=== PATIENT | female | born 1985 | race Caucasian/White ===

== ENCOUNTER 2018-04-10 12:02 | Emergency (ER) | payer SELFPAY ==
[~2018-04-10] VITALS: Ht 157.5 cm; Wt 63.0 kg
[~2018-04-10 12:02] MED LIST: PREN1TAB49; [UNRECOGNIZED DRUG - CODE]
[2018-04-10 12:05] VITALS: Ht 157.5 cm; Wt 63.0 kg
[2018-04-10] MEDS ORDERED: KETOROLAC 60 MG INJ IM STA (15:17)
[2018-04-10] MEDS ORDERED: HYDROCODONE/APAP (5/325) TAB PO ONE (15:30)
[2018-04-10] MEDS ORDERED: SULF1TAB31 PO (15:43)
[2018-04-10] MEDS ORDERED: CEPH-443 PO (15:43)
[2018-04-10] MEDS ORDERED: IBUP-1542 PO (15:43)
--- NOTE | 2018-04-10 16:01 | ERD ---
ER Documentation Chief Complaint Chief Complaint ABCESS TO RT ARMPIT SINCE DECEMBER HPI 32-year-old female patient with no significant past medical history presents to ED complaining of a right arm bump that started since December and has gotten bigger. States that it started to get more red and painful, 2 days ago. Patient reports that she shaves her armpits. Denies any fever, chills, nausea, vomiting, chest pain, shortness of breath. ROS All systems reviewed and are negative except as per history of present illness. Medications Home Meds Active Scripts Cephalexin* (Keflex*) 500 Mg Capsule, 500 MG PO QID for 7 Days, CAP Prov:KENRICK WALSH PA-C 04/10/18 Sulfamethoxazole/Trimethoprim* (Bactrim Ds* Tablet) 1 Each Tablet, 1 TAB PO BID for 7 Days, #14 TAB Prov:KENRICK WALSH PA-C 04/10/18 Ibuprofen* (Motrin*) 600 Mg Tab, 600 MG PO Q6, #30 TAB Prov:KENRICK WALSH PA-C 04/10/18 Reported Medications Vits W-Ca,Fe,Fa(<1MG) () 1 Tab Tablet 07/07/10 Amox Tr/Potassium Clavulanate (Augmentin 500-125 Tablet) 1 Tab Tablet 07/02/10 Allergies Allergies: Coded Allergies: No Known Drug Allergy (Verified Allergy, Unknown, 07/07/10) PMhx/Soc History of Surgery: No Anesthesia Reaction: No Hx Neurological Disorder: No Hx Respiratory Disorders: No Hx Cardiac Disorders: No Hx Psychiatric Problems: No Hx Miscellaneous Medical Probl: No Hx Alcohol Use: No Hx Substance Use: No Hx Tobacco Use: Yes Smoking Status: Current every day smoker FmHx Family History: No diabetes, No coronary disease Physical Exam Vitals Vital Signs Date Temp Pulse Resp B/P (MAP) Pulse Ox O2 O2 Flow FiO2 Time Delivery Rate 04/10/18 98.3 67 17 125/62 99 12:05 (83) Physical Exam Const: [id number]-[id number], well-nourished. In no acute distress. Head: Atraumatic, normocephalic Eyes: Normal Conjunctiva without injection ENT: Normal external ear, nose and mouth. Neck: Full range of motion. No meningismus. Resp: Clear to auscultation bilaterally. No wheezing, rhonchi, rales, or crackles. No accessory muscle use. No retractions. Cardio: Regular rate and rhythm, no murmurs Skin: No petechiae or rashes Back: No midline tenderness. No CVA tenderness. Ext: No cyanosis, or edema. Cap refill less than 2 seconds. Distal pulses intact bilaterally. 3 cm x 2 cm cystlike lesion noted on the right armpit. Slight erythema noted. No edema, purulent discharge, fluctuance, induration, lymphatic streaking. Neur: Awake and alert. Normal gait and coordination. Muscle strength 5/5. Sensa tion intact bilaterally. Psych: Normal Mood and Affect Results 24 hrs Laboratory Tests Test 04/10/18 15:33 POC Beta HCG, Qualitative NEGATIVE Current Medications Medications Dose Sig/Nini Start Time Status Last (Trade) Ordered Route PRN Stop Time Admin Dose Reason Admin 1 tab ONCE ONCE 04/10/18 Cancel Acetaminophen PO 15:30 04/10/18 / 15:31 Hydrocodone Bitart ([place] (5/325)) Ketorolac 60 mg ONCE STAT 04/10/18 DC 04/10/18 Tromethamine IM 15:17 04/10/18 15:35 (Toradol) 15:18 Procedures/MDM 32-year-old female patient with no significant past medical history presents to the ED complaining of a cystlike lesion noted on her right armpit that started since December but worsen, 2 days ago. Patient is afebrile and nontoxic- appearing. At this time there is no fluctuance. There is no indication for incision and drainage. Urine negative. Patient was treated here in the ED with 60 mg IM Toradol with improvement of her pain. Patient is appropriate for outpatient management with antibiotics as well as warm com presses. Patient was instructed to return to the ED or follow-up with her primary care physician in 2 days for reevaluation of the infected sebaceous cyst. Low suspicion for anaphylaxis, scabies, SJS/TEN, TSS, Lyme's Disease, syphilis, RMSF, shingles, disseminated gonorrhea chlamydia, DIC, TTP, ITP, erythema multiforme, sepsis, cellulitis, necrotizing fasciitis, gangrene, meningococcemia, allergic contact dermatitis, urticaria, eczema, tinea infection, or other emergent conditions. Diagnosis: Abscess Discharge medications: Keflex, Bactrim, ibuprofen Follow up with primary care physician in 1-2 days. Instructed patient to return to the ED sooner for any worsening symptoms. Patient's questions were answered. Patient is hemodynamically stable. Patient understood and agreed with discharge plan. Patient discharged stable. Disclaimer: Inadvertent spelling and grammatical errors are likely due to EHR/dictation software use and do not reflect on the overall quality of patient care. Also, please note that the electronic time recorded on this note does not necessarily reflect the actual time of the patient encounter. Departure Diagnosis: Primary Impression: Abscess Condition: Stable Patient Instructions: Sebaceous Cyst, Infected (Abx Tx) Referrals: TIMOTHY HWANG (PCP) [facility] YOU HAVE RECEIVED A MEDICAL SCREENING EXAM AND THE RESULTS INDICATE THAT YOU DO NOT HAVE A CONDITION THAT REQUIRES URGENT TREATMENT IN THE EMERGENCY DEPARTMENT. FURTHER EVALUATION AND TREATMENT OF YOUR CONDITION CAN WAIT UNTIL YOU ARE SEEN IN YOUR DOCTORS OFFICE WITHIN THE NEXT 1-2 DAYS. IT IS YOUR RESPONSIBILITY TO MAKE AN APPOINTMENT FOR FOLOW-UP CARE. IF YOU HAVE A PRIMARY DOCTOR --you should call your primary doctor and schedule an appointment IF YOU DO NOT HAVE A PRIMARY DOCTOR YOU CAN CALL OUR PHYSICIAN REFERRAL HOTLINE AT IF YOU CAN NOT AFFORD TO SEE A PHYSICIAN YOU CAN CHOSE FROM THE FOLLOWING [facility] [address] [facility]. [facility] [address] [facility]. [facility] [address] [facility]. [facility] [address] [facility]. [facility] [address] [facility]. [facility]. [address] [facility]. [facility] YOU HAVE RECEIVED A MEDICAL SCREENING EXAM AND THE RESULTS INDICATE THAT YOU DO NOT HAVE A CONDITION THAT REQUIRES URGENT TREATMENT IN THE EMERGENCY DEPARTMENT. FURTHER EVALUATION AND TREATMENT OF YOUR CONDITION CAN WAIT UNTIL YOU ARE SEEN IN YOUR DOCTORS OFFICE WITHIN THE NEXT 1-2 DAYS. IT IS YOUR RESPONSIBILITY TO MAKE AN APPOINTMENT FOR FOLOW-UP CARE. IF YOU HAVE A PRIMARY DOCTOR --you should call your primary doctor and schedule and appointment IF YOU DO NOT HAVE A PRIMARY DOCTOR YOU CAN CALL OUR PHYSICIAN REFERRAL HOTLINE AT . IF YOU CAN NOT AFFORD TO SEE A PHYSICIAN YOU CAN CHOSE FROM THE FOLLOWING [facility] INSTITUTIONS: [facility] [address] [place] [address] [facility] [address] [place] [address] [facility] + [facility] [address] [place] [address] [facility] URGENT C[facility]/SPECIALTIES Additional Instructions: Call your primary care doctor TOMORROW for an appointment during the next 2-3 days.See the doctor sooner or return here if your condition worsens before your appointment time. KENRICK WALSH PA-C Apr 10, 2018 16:01
== END 2018-04-10 16:06 | disposition home or self-care (01) ==
LOC: FTE 12:02
DX: L02.413 Cutaneous abscess of right upper limb (principal); F17.210 Nicotine dependence, cigarettes, uncomplicated
CPT/HCPCS: 81025; 96372; 99284; J1885

== ENCOUNTER 2018-10-26 01:32 | Emergency (ER) | payer SELFPAY ==
[~2018-10-26] VITALS: Ht 160 cm; Wt 55.7 kg
[~2018-10-26 01:32] MED LIST changes: +CEPH-443 PO; +IBUP-1542 PO; +SULF1TAB31 PO
[2018-10-26 01:34] VITALS: BP 130/84; PULSE 107; RESP 20; Ht 160 cm; Wt 55.7 kg
== END 2018-10-26 02:40 | disposition left against medical advice (07) ==
LOC: E/R 01:32
DX: Z53.21 Procedure and treatment not carried out due to patient leaving prior to being seen by health care provider (principal)